=== PATIENT | male | born 1960 | race Caucasian/White ===

== ENCOUNTER 2017-09-01 12:52 | Emergency (ER) | payer OTHER ==
[2017-09-01] MEDS: NITROGLYCERIN SUBLINGUAL 0.4 MG BOTTLE OF 25. SL PRN (13:05)
[2017-09-01] MEDS: ASPIRIN 81 MG TAB.CHEW PO ONE (13:05)
[2017-09-01 13:19] LABS: BASO % 1 % (0-3); EOS # 0.2 x10^3/uL (0.0-0.7); EOS % 2 % (0-3); HEMOGLOBIN 16.2 g/dL (13.0-17.5); LYMPH # 2.3 x10^3/uL (1.0-4.8); LYMPH % 23 % (24-48); MEAN CORPUSCULAR HEMOGLOBIN 32 pg (25-35); MEAN CORPUSCULAR HGB CONC 35 g/dL (31-37); MEAN CORPUSCULAR VOLUME 92 fL (79-100); MONO # 0.8 x10^3/uL (0.0-1.1); MONO % 8 % (0-9); NEUT # 6.5 x10^3uL (1.8-7.7); NEUT % 66 % (31-73); PLATELET COUNT 226 x10^3/uL (140-400); RED BLOOD COUNT 5.11 x10^6/uL (4.30-5.70); WHITE BLOOD COUNT 9.8 x10^3/uL (4.0-11.0)
[2017-09-01 13:22] VITALS: BP 147/87
--- NOTE | 2017-09-01 13:26 | RAD ---
EXAM: Chest, single view. HISTORY: Chest pain. COMPARISON: None. FINDINGS: A frontal view of the chest is obtained. There is no infiltrate, effusion or pneumothorax. The heart is normal in size. IMPRESSION: No acute pulmonary finding. Electronically signed by: Sayda Madrid MD (09/01/2017 1:22 PM) [place] [id number]
[2017-09-01 13:42] LABS: ALBUMIN 3.9 g/dL (3.4-5.0); ALBUMIN/GLOBULIN RATIO 1.1 (1.0-1.7); CALCIUM 9.1 mg/dL (8.5-10.1); MAGNESIUM 2.1 mg/dL (1.8-2.4); POTASSIUM 3.5 mmol/L (3.5-5.1); TOTAL BILIRUBIN 0.3 mg/dL (0.2-1.0); TOTAL PROTEIN 7.4 g/dL (6.4-8.2)
--- NOTE | 2017-09-01 13:54 | PHYS DOC ---
Past History Past Medical History: No Pertinent History Smoking: Cigarettes (once a month) Alcohol Use: None Drug Use: None Adult General Chief Complaint Chief Complaint: CHEST PAIN HPI HPI 57-year-old male patient without medical problem complaining of exertional substernal discomfort chest pain for the last 5 days that getting better with rest. Patient states he left a treadmill by himself today and felt substernal aching pain with radiation to his back and rated his pain 2-4. Patient states he had shortness of breath and sweating but believes it was related to physical activity not because of the chest pain. Patient states he had bilateral hand numbness during episode of chest pain. Patient denies nausea, palpitation, dizziness. Patient states he thinks he has muscle pain but his wants he gets evaluation to make sure everything is fine. Patient denies any medical problem and states he smokes once in a while when he goes to [employer] and denies family history of coronary artery disease or previous episodes of chest pain. Review of Systems Review of Systems Constitutional: Denies fever or chills [] Eyes: Denies change in visual acuity, redness, or eye pain [] HENT: Denies nasal congestion or sore throat [] Respiratory: Denies cough , reports shortness of breath Cardiovascular: No additional information not addressed in HPI [] GI: Denies abdominal pain, nausea, vomiting, bloody stools or diarrhea [] : Denies dysuria or hematuria [] Musculoskeletal: Denies back pain or joint pain [] Integument: Denies rash or skin lesions [] Neurologic: Denies headache, focal weakness or sensory changes [] Endocrine: Denies polyuria or polydipsia [] All other systems were reviewed and found to be within normal limits, except as documented in this note. Current Medications Current Medications Current Medications Medications (Trade) Dose Ordered Sig/Naveed Start Time Stop Time Status Last Admin Dose Admin Aspirin (Children'S Aspirin) 324 mg 1X ONCE 09/01/17 13:15 09/01/17 13:18 DC 09/01/17 13:05 324 MG Nitroglycerin (Nitrostat) 0.4 mg PRN Q5MIN PRN 09/01/17 13:15 09/02/17 13:14 09/01/17 13:05 0.4 MG Allergies Allergies Allergies Coded Allergies Type Severity Reaction Last Updated Verified No Known Drug Allergies 09/01/17 No Physical Exam Physical Exam Constitutional: Well developed, well nourished, mild distress, non-toxic appearance. [] HENT: Normocephalic, atraumatic, bilateral external ears normal, oropharynx moist, no oral exudates, nose normal. [] Eyes: PERRLA, EOMI, conjunctiva normal, no discharge. [] Neck: Normal range of motion, no tenderness, supple, no stridor. [] Cardiovascular:Heart rate regular rhythm, no murmur [] Lungs & Thorax: Bilateral breath sounds clear to auscultation [] Abdomen: Bowel sounds normal, soft, no tenderness, no masses, no pulsatile masses. [] Skin: Warm, dry, no erythema, no rash. [] Back: No tenderness, no CVA tenderness. [] Extremities: No tenderness, no cyanosis, no clubbing, ROM intact, no edema. [] Neurologic: Alert and oriented X 3, normal motor function, normal sensory function, no focal deficits noted. [] Psychologic: Affect normal, judgement normal, mood normal. [] Current Patient Data Vital Signs Vital Signs Date Time Temp Pulse Resp B/P (MAP) Pulse Ox O2 Delivery O2 Flow Rate FiO2 09/01/17 13:05 161/105 Lab Results Laboratory Tests Test 09/01/17 13:00 White Blood Count 9.8 x10^3/uL (4.0-11.0) Red Blood Count 5.11 x10^6/uL (4.30-5.70) Hemoglobin 16.2 g/dL (13.0-17.5) Hematocrit 47.0 % (39.0-53.0) Mean Corpuscular Volume 92 fL (79-100) Mean Corpuscular Hemoglobin 32 pg (25-35) Mean Corpuscular Hemoglobin Concent 35 g/dL (31-37) Red Cell Distribution Width 13.0 % (11.5-14.5) Platelet Count 226 x10^3/uL (140-400) Neutrophils (%) (Auto) 66 % (31-73) Lymphocytes (%) (Auto) 23 % (24-48) L Monocytes (%) (Auto) 8 % (0-9) Eosinophils (%) (Auto) 2 % (0-3) Basophils (%) (Auto) 1 % (0-3) Neutrophils # (Auto) 6.5 x10^3uL (1.8-7.7) Lymphocytes # (Auto) 2.3 x10^3/uL (1.0-4.8) Monocytes # (Auto) 0.8 x10^3/uL (0.0-1.1) Eosinophils # (Auto) 0.2 x10^3/uL (0.0-0.7) Basophils # (Auto) 0.0 x10^3/uL (0.0-0.2) Prothrombin Time 10.4 SEC (9.4-11.4) Prothrombin Time INR 1.0 (0.9-1.1) PTT 26 SEC (23-33) Sodium Level 144 mmol/L (136-145) Potassium Level 3.5 mmol/L (3.5-5.1) Chloride Level 106 mmol/L (98-107) Carbon Dioxide Level 27 mmol/L (21-32) Anion Gap 11 (6-14) Blood Urea Nitrogen 11 mg/dL (8-26) Creatinine 1.0 mg/dL (0.7-1.3) Estimated GFR (Cockcroft-Gault) 77.0 BUN/Creatinine Ratio 11 (6-20) Glucose Level 104 mg/dL (70-99) H Calcium Level 9.1 mg/dL (8.5-10.1) Magnesium Level 2.1 mg/dL (1.8-2.4) Total Bilirubin 0.3 mg/dL (0.2-1.0) Aspartate Amino Transferase (AST) 27 U/L (15-37) Alanine Aminotransferase (ALT) 33 U/L (16-63) Alkaline Phosphatase 92 U/L (46-116) Creatine Kinase 264 U/L (39-308) Creatine Kinase MB (Mass) 3.4 ng/mL (0.0-3.6) Creatine Kinase MB Relative Index 1.3 % (0-4) Troponin I Quantitative 0.351 ng/mL (0-0.055) H [id number]-[id number]-C-Type Natriuretic Peptide 124 pg/mL (0-124) Total Protein 7.4 g/dL (6.4-8.2) Albumin 3.9 g/dL (3.4-5.0) Albumin/Globulin Ratio 1.1 (1.0-1.7) Lipase 136 U/L (73-393) EKG EKG EKG interpreted by me. EKG shows normal sinus rhythm at rate of 77, respiratory patient and inverted T in V1 and V2 and V3 no previous EKG available to compare , central office repairer supervisor control officer was informed at [facility] after having EKG Radiology/Procedures Radiology/Procedures [ [address], [place], [place] [id number] IMAGING REPORT Signed PATIENT: JOSE PATTEN ACCOUNT: [id number] : 1960 LOCATION: ER AGE: 57 SEX: M EXAM STATUS: PRE ER ORD. PHYSICIAN: TOMASZ AKHTAR MD REASON: chest pain PROCEDURE: PORTABLE CHEST 1V EXAM: Chest, single view. HISTORY: Chest pain. COMPARISON: None. FINDINGS: A frontal view of the chest is obtained. There is no infiltrate, effusion or pneumothorax. The heart is normal in size. IMPRESSION: No acute pulmonary finding. Electronically signed by: Sayda Rendon MD (09/01/2017 1:22 PM) [facility] DICTATED AND SIGNED BY: SAYDA RENDON MD DATE: 09/01/17 1322 CC: TOMASZ AKHTAR MD ~ ] Course & Med Decision Making Course & Med Decision Making Pertinent Labs and Imaging studies reviewed. (See chart for details) Evaluation of patient in ER showed 57-year-old male patient episodes of exertional chest pain for several days. EKG showed no tenderness to depression in anteroseptal leads. On-call central office repairer supervisor at [facility] Dr. Teresa was contacted at 1301physician and said the call and recommended to wait troponin results.Dr Teresa contacted us by himself and commented to send patient to powerhouse laborer and recommended to not give any other treatment. Troponin results was available at the same time and was 0.35. Patient treated with 324 mg of aspirin and nitroglycerin 2 without change of his pain. I talked to the patient at his arrival regarding change of EKG and needs for admission but patient was in condition of denying of his chest pain and after talking several times and informing about testes results finally agreed with transferring to [facility]. Dr. Byrd accepted transfer at 1331 to [facility]. Dragon Disclaimer Dragon Disclaimer This electronic medical record was generated, in whole or in part, using a voice recognition dictation system. Departure Departure: Impression: Primary Impression: NSTEMI (non-ST elevated myocardial infarction) Disposition: 02 XFER T-TRM HOSP ([facility] at 1332) Condition: GUARDED Critical Care Time Critical care time was [60] minutes exclusive of procedures. TOMASZ AKHTAR MD Sep 01, 2017 13:54
--- NOTE | 2017-09-01 15:42 | EKG ---
[address] [address] Test Date: 2017-09-01 Test Time: 12:53:57 Pat Name: JOSE PATTEN Department: Room: Gender: M Protective Signal Repairer: COLEEN : 1960 Requested By: TOMASZ AKHTAR Order Number: [id number] Reading MD: Measurements Intervals [place] Rate: 77 P: 48 NH: 184 QRS: 46 QRSD: 96 T: 80 QT: 382 QTc: 434 Interpretive Statements SINUS RHYTHM CONSIDER RIGHT VENTRICULAR HYPERTROPHY QRS(T) CONTOUR ABNORMALITY CONSIDER ANTEROLATERAL MYOCARDIAL DAMAGE POSSIBLY ABNORMAL ECG RI6.01 No previous ECG available for comparison
== END 2017-09-01 14:00 | disposition short-term general hospital (02) ==
LOC: ER 12:52
DX: I21.4 Non-ST elevation (NSTEMI) myocardial infarction (principal); F17.210 Nicotine dependence, cigarettes, uncomplicated
CPT/HCPCS: 36415; 71045; 80053; 82553; 83690; 83735; 83880; 84484; 85025; 85610; 85730; 93005; 99291-25